=== PATIENT | female | born 1930 | race Caucasian/White ===

== ENCOUNTER → 2016-09-23 | Outpatient (CLI) | payer OTHER ==
[~2016-09-23] VITALS: Ht 157.5 cm; Wt 72.6 kg
[~2016-09-23] MED LIST: ACETAMINOPHEN-1 EAC1 PO; ALDACTONE25 MG PO; ALPRAZOLAM 0.0.25 MG PO; ALPRAZOLAM 0.50.5 MG PO; ALPRAZOLAM1 MG PO; AMITRIPTYLINE H25 M3 PO; APAP500; APAP500 PO; APAP650; ASA81BEC PO; CALCIUM 600 +1 EAC8; CALCIUM CITRAT1 EA14 PO; CALCIUM PO; CARVEDILOL3.125 MG PO; CENTRUM SILVER1 EAC3; CIPRO250 M1 PO; CLONIDINE0.1 PO; COLACE 100 MG100 MG PO; COREG PO; Centrum Silver Ultra PO; ELAVIL; ENDOCET 5-3251 EACH PO; FISH OIL 1,2001 EACH PO; FISHOIL PO; FLOMAX PO; GABAPENTIN; GABAPENTIN 100100 MG PO; GLUCOSAMINE &1 EACH PO; IBUPROFEN 800800 M1 PO; K-DUR 20 MEQ T20 MEQ; K-DUR 20 MEQ T20 MEQ PO; LASIX 40 MG TAB40 M1 PO; LATANOPROST2.5 ML OP; LISINOPRIL10 MG PO; LORTAB 5 MG/5001 TA1 PO; LYRICA 50 MG50 MG PO; LYRICA100 MG PO; MACROBID 100 M100 M1 PO; MAGNESIUM400 MG PO; MEDROLDOSEPACK PO; MELOXICAM7.5 MG PO; MINOCIN100 MG PO; MULTIVITAMINS; MULTIVITAMINS PO; NAPROSYN250 MG PO; OMEPRAZOLE20 MG PO; PERCOCET 5-3251 EACH PO; PHENERGAN 25 MG25 M1 PO; POTASSIUM20 PO; PRILOSEC 20 MG20 MG PO; PROZAC10 MG PO; PUB GLUCOSAMIN1 EACH PO; TRAMADOL 50 MG50 MG PO; TYLENOL P.M. E1 EAC3 PO; UNISOM SLEEP AI25 MG PO; VALIUM2 MG PO; VICODIN 5-5001 EACH PO; VITAMIN B-12500 MCG PO; VITAMIN D-32000 UNIT PO; VITAMIN D1000 UNI2 PO; XANAX 0.5 MG0.5 M1 PO; ZESTRIL20 MG PO; ZOFRAN ODT4 MG PO
--- NOTE | ~2016-09-23 | P ---
[facility] [place] [address] PROCEDURE REPORT Name: ARLINEMASOOD KIRBY Room #: REG [facility]#: [id number] Admission: 09/23/16 Attend Phys: Dar Oglesby MD Discharge: Date of : 32 Report #: [id number] THIS REPORT FOR: //name// CC: FAM unknown Dar Oglesby DATE OF SERVICE: 09/23/2016 HISTORY: The patient is an 86-year-old with history of Bi-V ICD whose device is currently at [facility] and she is here for a generator exchange. DESCRIPTION OF PROCEDURE: The patient was brought to the EP laboratory in fasting and sedated state, prepped and draped in a sterile fashion. She was sedated by the Anesthesiology service. She received IV antibiotics prior to initiation of the procedure. Lidocaine was injected at the prior incision site. An incision was made. A pocket was opened and the device was removed from the pocket. The new device was connected and the pocket was irrigated with vancomycin solution. The pocket was closed in 3 layers using 2-0 for the deep layer, 3-0 for the mid layer and 4-0 for the subcuticular layer and surgical glue was placed to the outer skin layer. The patient awoke neurologically and hemodynamically intact with no complications and no significant bleeding. The explanted device was a [employer] serial #[id number]. The model number was [id number]. This was originally implanted on 04/12/2011. The newly implanted generator was a [employer] model #WO9094-26R, serial #[id number]. Atrial lead was a [employer] model #4076, serial #[id number]. The RV lead was a [employer] model #6947, serial #[id number]. The LV lead was a [employer]onic model #4296, 88 cm, serial number [id number]. Atrial lead demonstrated P-wave of 2.4 millivolts, pacing impedance 450 ohms, pacing threshold 0.75 volts at 0.4 milliseconds. The RV lead demonstrated R-wave of 6.7 millivolts, pacing impedance of 440 ohms, pacing threshold 1 volt at 0.5 milliseconds. The LV lead demonstrated impedance of 530 ohms, pacing threshold 1.25 volts at 0.5 milliseconds. The device is programmed to the DDDR 6120 mode. The VF zone was set at 214, VT2 zone was set at 187. The VT1 zone was set at 167. CONCLUSIONS: 1. Successful generator exchange. 2. Satisfactory atrial, right ventricular and left ventricular pacing thresholds. <ELECTRONICALLY SIGNED> By: Dar Oglesby MD 10/01/16 1226 1427 1751 Dar Oglesby MD /nt
[2016-09-23 09:21] VITALS: BP 110/50
[2016-09-23 09:24] LABS: ABSOLUTE NEUTROPHILS 2.5 thou/uL (1.4-8.2); BASOPHILS 0.6 % (0.0-2.0); EOSINOPHILS 2.1 % (0.0-3.0); HEMATOCRIT 40.1 % (37.0-47.0); HEMOGLOBIN 13.4 gm/dL (12.0-15.0); LYMPHOCYTES 32.9 % (24.0-44.0); MCHC 33.4 % (28.0-37.0); MCV 92.7 fL (80.0-100.0); MONOCYTES 11.1 % (1.0-8.0); PLATELET COUNT 292 thou/uL (150-400); POLYS 53.3 % (36.0-66.0); RBC 4.32 mil/uL (4.20-5.00); WBC 4.7 thou/uL (4.0-11.0)
[2016-09-23 09:27] LABS: MANUAL DIFF NO
[2016-09-23 09:40] LABS: APTT 28.7 Seconds (24.5-32.8); PROTIME 10.7 Seconds (9.3-11.4)
[2016-09-23 09:41] LABS: ALBUMIN 3.6 g/dL (3.4-5.0); CALCIUM 8.7 mg/dL (8.5-10.1); CREATININE 1.1 mg/dL (0.6-1.3); POTASSIUM 4.5 mmol/L (3.5-5.1); TOTAL BILIRUBIN 0.4 mg/dL (<0.1-1.0)
== END | disposition home or self-care (01) ==
LOC: CATH 09-20 07:37
PROVIDERS: Internal Medicine Cardiovascular Disease
DX: Z45.018 Encounter for adjustment and management of other part of cardiac pacemaker (principal); M79.7 Fibromyalgia; I10 Essential (primary) hypertension; Z90.710 Acquired absence of both cervix and uterus
CPT/HCPCS: 62110; 62900; 70005

== ENCOUNTER → 2017-11-25 | Outpatient (CLI) | payer OTHER | LOC: RAD 01:05 | DX: Z12.31 Encounter for screening mammogram for malignant neoplasm of breast (principal) ==

== ENCOUNTER → 2018-11-21 | Outpatient (CLI) | payer OTHER | LOC: RAD 12:31 | DX: J98.11 Atelectasis (principal); J98.4 Other disorders of lung; M19.012 Primary osteoarthritis, left shoulder; K44.9 Diaphragmatic hernia without obstruction or gangrene; Z88.5 Allergy status to narcotic agent; Z88.1 Allergy status to other antibiotic agents; Z91.011 Allergy to milk products; Z88.2 Allergy status to sulfonamides ==

== ENCOUNTER → 2018-11-22 | Outpatient (CLI) | payer OTHER ==
--- NOTE | 2018-11-26 23:22 | PFR/MVV ---
[facility] [place] [address] PULMONARY FUNCTION MVV/REPORT Name: MASOOD NUNNRAINE Room #: REG [facility]#: [id number] ������������������ Admission: 11/22/18 ������������������ Attend Phys: Luis Breen MD, [facility] Discharge: ������������������ Date of : 32 Report #: [id number] THIS REPORT FOR: //name// >> SPIROMETRY: (BTPS) Height: in cm Weight: lbs kg Exam Date: PRE-RX POST-RX PRED BEST %PRED BEST %PRED %CHG FVC LITERS . . . . . . FEV1 LITERS . . . . . . FEV1/FVC % . . . . . . ZWV38-09% L/Sec . . . . . . PEF L/SEC . . . . . . FEF50/FIF50 UNITLESS . . . . . . MVV L/Min . . . f 1/Min . . . >> LUNG VOLUMES: (BTPS) PRE-RX POST-RX PRED AVG %PRED AVG %PRED %CHG VC Liters . . . . . . TLC Liters . . . . . . RV Liters . . . . . . RV/TLC % . . . . . . FRC PL Liters . . . . . . FRC N2 Liters . . . . . . ERV Liters . . . . . . IC Liters . . . . . . >> DIFFUSION: DLCO ml/Min/mmHg . . . . . . DL Messi ml/Min/mmHg . . . . . . DLCO/VA ml/Min/mmHg . . . . . . VA Liters . . . . . . COMMENTS: COMMENTS: >> RESISTANCE: [facility] [place] [address] [place] [address] PULMONARY FUNCTION MVV/REPORT Name: MASOOD NUNN [facility]: [facility] [id number] ������������������ Admission: 11/22/18 ������������������ Attend Phys: Luis Breen MD, [facility] Discharge: ������������������ Date of : 32 Report #: [id number] PRE-RX PRED AVG %PRED Raw Total cmH20/L/Sec . . . Raw Insp cmH20/L/Sec . . . Raw Exp cmH20/L/Sec . . . Raw cmH20/L/Sec . . . Gaw L/Sec/cmH20 . . . sRaw cmH20 Sec . . . sGaw l/cmH20 Sec . . . Vtq Liters . . . # = OUTSIDE 95% CONFIDENCE INTERVAL CALIBRATION: PRED: 3.00 ACTUAL: EXP 3.01 INSP 3.02 [facility]-OL06-10 [facility] [address] N-1804-4 >> INTERPRETATION/IMPRESSION: CC: Luis Breen FAM unknown DATE OF SERVICE: 11/22/2018 PULMONARY FUNCTION TEST: SPIROMETRY: FEV1 is 1.60 liters (113%). FVC is 2.13 liters (105%). FEV1/FVC ratio 75%. Postbronchodilator therapy has an intermediate response. Lung volumes: Total lung capacity is 5.50 liters (142%). RV 3.04 liters (174%). The diffusing capacity is 53%. IMPRESSION: Pulmonary function studies are consistent with essentially normal pulmonary function. FEV1/FVC ratio is normal at 75% and likely secondary to physiologic variant with FEV1 greater than 100%. She continues to have an [facility] [place] [address] [place] [address] PULMONARY FUNCTION MVV/REPORT Name: MASOOD NUNN Room #: REG [facility]#: [id number] ������������������ Admission: 11/22/18 ������������������ Attend Phys: Luis Breen MD, [facility] Discharge: ������������������ Date of : 32 Report #: [id number] intermediate response to bronchodilator therapy. There is evidence of some mild hyperinflation and air trapping. Diffusing capacity is moderately decreased. ��������������������������������������������� <ELECTRONICALLY SIGNED> ���������������������������������������� By: Wali Ugalde MD ��������������������������������������������� 11/26/18 2322 Wali Ugalde MD /abdiel
== END ==
LOC: PUL 09:31
DX: R06.02 Shortness of breath (principal)

== ENCOUNTER → 2018-12-06 | Outpatient (CLI) | payer OTHER | LOC: RAD 12-04 01:40 | DX: Z12.31 Encounter for screening mammogram for malignant neoplasm of breast (principal) ==

== ENCOUNTER → 2020-06-04 | Outpatient (CLI) | payer OTHER | LOC: SJCVCIMAG 09:03 | PROVIDERS: ATTEND Internal Medicine | DX: I07.1 Rheumatic tricuspid insufficiency (principal); I42.0 Dilated cardiomyopathy; I11.0 Hypertensive heart disease with heart failure; I50.32 Chronic diastolic (congestive) heart failure; E78.5 Hyperlipidemia, unspecified; E78.2 Mixed hyperlipidemia; R94.31 Abnormal electrocardiogram [ECG] [EKG]; Z95.810 Presence of automatic (implantable) cardiac defibrillator ==

== ENCOUNTER → 2020-06-09 | Outpatient (CLI) | payer OTHER | LOC: LAB 13:54 | PROVIDERS: ATTEND Specialist | DX: Z01.812 Encounter for preprocedural laboratory examination (principal); Z20.828 Contact with and (suspected) exposure to other viral communicable diseases ==

== ENCOUNTER → 2020-06-13 | Outpatient (CLI) | payer OTHER ==
[~2020-06-13] VITALS: Ht 154.9 cm; Wt 72.6 kg
[~2020-06-13] MED LIST changes: +ACETAMINOPHEN500 MG PO; +CARVEDILOL12.5 MG PO; +JOINT HEALTH T1 EACH PO; +MELATONIN10 M3 PO; +MULTI VITAMIN1 EACH PO; +PEPCID COMPLET1 EACH PO; +PROZAC10 M1 PO; +TRAZODONE HCL50 MG PO; +VITAMIN B-12500 MC5 PO; +VITAMIN D31250 MCG PO
--- NOTE | 2020-06-14 14:53 | P ---
[facility] [place] [address] PROCEDURE REPORT Name: MASOOD NUNN [id number] Admission: 06/13/20 Attend Phys: Adrian Herrera Discharge: Date of : 32 Report #: [id number] THIS REPORT FOR: cc: Shon Lima,Adrian Hsieh MD ~ CC: Adrian Lima DO DATE OF SERVICE: 06/13/2020 PROCEDURE PERFORMED: Upper endoscopy with biopsies and esophageal dilation. HISTORY OF PRESENT ILLNESS: The patient is an 89-year-old female with a long history of gastroesophageal reflux disease, taking Prilosec for many years, began having intermittent diarrhea and thought this may be secondary to PPI. She therefore discontinued the medicine 1 month ago and the diarrhea did stop for a short period of time, but also has now resumed despite being off Prilosec. She is not taking Pepcid on a daily basis, which has been helpful, but continues to have intermittent heartburn symptoms, was having heartburn symptoms even on daily PPI therapy. She takes an aspirin on a daily basis. She has had 1 or 2 episodes of nausea and vomiting recently. Her weight has been stable. She does report early satiety. She is averaging 2-3 loose bowel movements per day. She denies any blood in her stools. Last colonoscopy was in 2009, in which, small polyps were removed. Last upper endoscopy was in 2012, which was normal at that time. Biopsies at that time were negative for sprue. The patient also complains of intermittent dysphagia. DESCRIPTION OF PROCEDURE: The risks and benefits of the procedure were explained to the patient, those risks including but not limited to bleeding, perforation and the risk of sedation. She understood these risks and gave informed consent. Sedation was given using propofol per anesthesia. Next, using a standard Olympus upper endoscope, the scope was placed in the patient's mouth and advanced under direct vision through the esophagus, stomach and into the second portion of the duodenum. The larynx was normal in appearance. The upper and mid esophagus was normal. At the GE junction, grade A erosive esophagitis was noted. No evidence of stricture. Upon entering the stomach, a large hiatal hernia was noted. There was gastritis noted throughout the body and the antrum of the stomach with several linear ulcerations noted. No evidence of bleeding. Biopsies were obtained to rule out H. pylori. The pylorus was normal and patent. The duodenal bulb, first and second portion were all normal. Biopsies were obtained to rule out the possibility of celiac sprue. The scope was then brought back up into the patient's stomach and a Savary guidewire was inserted through the scope, leaving the guidewire in place. Next, a 48-[place] Savary dilation of the esophagus was performed without difficulty. [address] [address] PROCEDURE REPORT Name: MASOOD NUNN Room #: REG [facility]#: [id number] Admission: 06/13/20 Attend Phys: Adrian Herrera Discharge: Date of : 32 Report #: [id number] The wire and dilator removed. The scope was reintroduced into the patient's stomach. There was no evidence of mucosal tear after dilation. The scope was then withdrawn and the procedure terminated. The patient tolerated the procedure well. IMPRESSION: 1. Grade A erosive esophagitis. 2. Large hiatal hernia. 3. Gastritis with several linear ulcerations. 4. Otherwise, normal upper endoscopy. RECOMMENDATIONS: 1. Await biopsy results. 2. Would recommend daily PPI therapy instead of Pepcid. We will switch to a different brand as the patient may have had diarrhea due to Prilosec. 3. Observe the patient post-dilation. 4. If biopsies are negative and the patient has continued diarrhea, may need to consider further workup. Thank you for allowing me to participate in her care. <ELECTRONICALLY SIGNED> By: Adrian Barroso MD 06/14/20 1453 0951 Adrian Barroso MD /nt
--- NOTE | 2020-06-16 17:06 | PATH ---
[facility] [address] [place] [address] PATHOLOGY RPT PROCEDURE Name: LIZETTE NUNNINE Room #: REG [facility] Fernando.#: [id number] Admission: 06/13/20 Date of : 32 Discharge: Report #: [id number] Path Case #: [id number] [facility] Accession Number: [id number] . 01 Material submitted: . PART A: duodenum - BX OF DUODENUM PART B: stomach - BX OF GASTRITIS . 01 Clinical history: . A. R/O SPRUE B. R/O H PYLORI . 02 Diagnosis: A. Small bowel mucosa, duodenum, endoscopic biopsy: - No diagnostic abnormalities present. - Negative for villous blunting or increase in intraepithelial lymphocytes. . B. Gastric mucosa, gastritis, endoscopic biopsy: - Mild chronic gastritis. - Negative for intestinal metaplasia or atrophy. - Negative for Helicobacter pylori (properly controlled immunohistochemical stain performed. (IUV:pit 06/16/2020) QTP 06/16/2020 1435 Local . 02 Electronically signed: . Jamilah De Souza MD, Pathologist NPI- [id number] . 01 Gross description: . A. Received in formalin labeled "Lizette Nunn, BX of duodenum rule out sprue" are multiple ceja-brown soft tissue fragments measuring in aggregate 1.3 x 0.5 x 0.1 cm. The specimen is submitted entirely in A1. . B. Received in formalin labeled "Tomy Lizette, BX of gastritis rule out H. pylori" are multiple ceja-brown soft tissue fragments measuring in aggregate 0.6 x 0.6 x 0.1 cm. The specimen is submitted entirely in B1. ([facility] [place]; 06/15/2020) [facility] 06/15/2020 0744 Local . 02 Pathologist provided ICD-10: K29.50 . 02 CPT . 865932, [id number], [id number] Specimen Comment: A courtesy copy of this report has been sent to [phone] [address] PATHOLOGY RPT PROCEDURE Name: LIZETTE NUNN MIRTA Room #: REG [facility]#: [id number] Admission: 06/13/20 Date of : 32 Discharge: Report #: [id number] Path Case #: [id number] Specimen Comment: [phone] Specimen Comment: Report sent to / DR IBRAHIM Performed at: [address] [facility] [address], [place], [place] [id number] MD Arthur Xiong MD Phone: [phone] Performed at: [address] [id number] MD Jamilah De Souza MD Phone: [phone]
== END | disposition home or self-care (01) ==
LOC: GI
PROVIDERS: ATTEND Specialist
DX: K21.9 Gastro-esophageal reflux disease without esophagitis (principal); R13.10 Dysphagia, unspecified; K29.50 Unspecified chronic gastritis without bleeding; K22.10 Ulcer of esophagus without bleeding; K44.9 Diaphragmatic hernia without obstruction or gangrene; R12 Heartburn; I11.0 Hypertensive heart disease with heart failure; I50.9 Heart failure, unspecified; I42.9 Cardiomyopathy, unspecified; J45.909 Unspecified asthma, uncomplicated; M79.7 Fibromyalgia; F32.9 Major depressive disorder, single episode, unspecified; Z90.710 Acquired absence of both cervix and uterus; Z98.41 Cataract extraction status, right eye; Z98.42 Cataract extraction status, left eye; Z90.49 Acquired absence of other specified parts of digestive tract; Z95.810 Presence of automatic (implantable) cardiac defibrillator; Z98.890 Other specified postprocedural states; Z79.899 Other long term (current) drug therapy
CPT/HCPCS: 62110; 62900